=== PATIENT | female | born 2000 ===

== ENCOUNTER 2025-06-04 04:46 | Inpatient (IN) ==
[2025-06-04] MEDS ORDERED: OXYTOCIN 30 UNITS/NSS 30 UNITS/500 ML BAG IV PRN (05:43)
[2025-06-04] MEDS ORDERED: LIDOCAINE 1% LOCAL 20 ML VIAL INFIL PRN (05:43)
[2025-06-04 06:11] LABS: Hematocrit (blood only) 35.1 % (37.0-47.0); Hemoglobin 11.8 g/dl (12.0-16.0); Mean Corpuscular Hemoglobin 30.2 pg (25.0-34.0); Mean Corpuscular Volume 89.8 fL (80.0-100.0); Platelet Count 216 K/uL (130-400); RDW Standard Deviation 39.3 fL (36.4-46.3); Red Blood Count 3.91 M/uL (4.20-5.40); White Blood Count 12.19 K/ul (4.8-10.8)
[2025-06-04] MEDS: LACTATED RINGER'S 1,000 ML IV PRN (07:18)
--- NOTE | 2025-06-04 07:38 | Anesthesiology Consultation ---
Date of Service June 04, 2025 Assessment & Plan ASA ASA2 Proposed Anesthesia Anesthesia Type: General Risk / Benefits Reviewed With: PT / POA / Parent / Guardian, Accepts Plan and Informed Consent Obtained History Height/Weight Height: 5 ft 5.75 in Weight: 75.75 kg Allergies Allergy/AdvReac Type Severity Reaction Status Date / Time acyclovir Allergy Intermediate Itching Verified 06/01/25 13:36 chocolate AdvReac Gastrointestinal Verified 06/04/25 05:03 Upset milk AdvReac Gastrointestinal Verified 06/04/25 05:03 Upset Medications Home Medications Medication Instructions Recorded Confirmed Last Taken 21-iron fu-folic acid 1 tab PO DAILY 10/24/24 06/04/25 05/22/25 [ Complete] Active Medications Generic Name Dose Route Start Last Admin Trade Name Freq PRN Reason Stop Dose Admin Lactated Ringer's 1,000 mls @ 125 mls/hr 06/04/25 05:43 06/04/25 08:27 Lr IV 06/06/25 05:42 125 mls/hr .Q8H PRN Administration L&D Protocol Protocol Past Medical History Medical History History of chicken pox Hepatitis A age 9 Exercise / Class Metabolic Activity II 4-5 Yardwork/Stairs/Walk up hill Past Family History Family History Mother Ovarian cancer Hypertension Father Diabetes Denies family history of Breast cancer Colorectal cancer Past Surgical History Surgical History No history of previous surgery Past Anesthesia History No Hx of Anesthesia Complications and No Family Hx of Anesthesia Complications History of PONV No Hx of PONV and No Hx of Motion Sickness Social History Smoking Status: Never smoker Do You Dip or Chew Tobacco: No Hx Alcohol Use: No Hx Substance Use: No substance use type: does not use Review of Systems denies fever/cough/ colds/ chest pain/ SOB/ HA denies HA Physical Exam Vital Signs Last Vital Signs Temp 37.0 C 06/04/25 07:11 Pulse 94 H 06/04/25 08:35 Resp 22 06/04/25 07:11 BP 127/55 L 06/04/25 08:35 Pulse Ox 97 06/04/25 08:35 ENMT Mouth: no TMJ abnormality and no dentition abnormality Thyromental Distance: > or= 3.5 Finger Breadths Mallampati Class: II Neck neck extension not limited Respiratory normal respiratory effort; no respiratory distress Auscultation: lungs clear to auscultation bilaterally Cardiovascular Rate/Rhythm: regular rate and regular rhythm Neurologic moves all extremities Psychiatric Orientation: alert and oriented x 3 Testing Laboratory Results 06/04/25 05:53
[2025-06-04] MEDS ORDERED: NALOXONE HCL 1 MG in SODIUM CHLORIDE 0.9% 1,000 ML IV PRN (07:39)
[2025-06-04] MEDS ORDERED: ROPIVACAINE 0.5% PF 5 MG/ML 20 ML VIAL EPI PRN (07:39)
[2025-06-04] MEDS ORDERED: BUPIVACAINE 0.25% PF 30 ML VIAL EPI PRN (07:39)
[2025-06-04] MEDS ORDERED: diphenhydrAMINE 50 MG/ML VIAL IV PRN (07:39)
[2025-06-04] MEDS ORDERED: NALOXONE HCL 0.4 MG/1 ML VIAL/CARP IV PRN (07:39)
[2025-06-04] MEDS ORDERED: SODIUM CHLORIDE 0.9% PF INJ 10 ML VIAL EPI PRN (07:39)
[2025-06-04] MEDS ORDERED: LIDOCAINE 2% MPF LOCAL 5 ML VIAL EPI PRN (07:39)
[2025-06-04] MEDS ORDERED: NALBUPHINE HCL INJ 10 MG/ML AMP IV PRN (07:39)
--- NOTE | 2025-06-04 07:53 | History & Physical Report ---
Date of Service June 04, 2025 Assessment & Plan (1) Supervision of normal first : Plan: 24 yo G1 at 40 6/7 wga presents in labor VSS Fetus cat 1 Labor - plan offer arom after epidural GBS neg desires epidural Admission and Anticipated Discharge Date Admission Date: June 04, 2025 History of Present Illness Chief Complaint: labor Primary Care Provider: Tiffany Lobato MD 24 yo G1 at 40 6/7 wga presents w/ ctx increasing in frequency and intensity. +FM; denies LOF, VB. PNI: None Past medical records coder hx: G1 regular cycles denies hx stis 10/2024 neg cyto Allergies Allergy/AdvReac Type Severity Reaction Status Date / Time acyclovir Allergy Intermediate Itching Verified 06/01/25 13:36 chocolate AdvReac Gastrointestinal Verified 06/04/25 05:03 Upset milk AdvReac Gastrointestinal Verified 06/04/25 05:03 Upset Home Medications Medication Instructions Recorded Confirmed Type 21-iron fu-folic acid 1 tab PO DAILY 10/24/24 06/04/25 History [ Complete] Patient History Medical History History of chicken pox Hepatitis A age 9 Surgical History No history of previous surgery Family History Mother Ovarian cancer Hypertension Father Diabetes Denies family history of Breast cancer Colorectal cancer Social History Smoking Status: Never smoker Do You Dip or Chew Tobacco: No; Hx Alcohol Use: No Hx Substance Use: No Preferred Language: Hungarian Communication Ability: Effective Blood Bank Manager Required: No Beliefs That Will Affect Care: Cultural marital status: marital status details: Fatimahwanda Mónica (28) [phone] Current Living Situation: Spouse Current Living Situation Comment: lives with spouse, no pets current occupational status: unemployed Other Information That Helps Us Care for You: No Assistive Devices: Contacts and Glasses Physical Exam Genitourinary: OB Exam Monitor Tracing: + external FHT monitor used, + external uterine monitor used (q6-7) and + category I (130/mod/+accel/-decel) SVE 4-5/90/-2 by RN Results & Data Vital Signs (Past 12 Hours) Vital Signs Temp Pulse Resp BP Pulse Ox 06/04/25 07:45 77 93 06/04/25 07:44 75 94 06/04/25 07:39 76 97 06/04/25 07:11 98.6 F 22 06/04/25 07:04 98.6 F 73 22 128/75 06/04/25 05:04 98.1 F 18 06/04/25 05:01 75 137/73 Laboratory Results OB Labs: Blood Type A Positive 11/03/24 Antibody Screen NEGATIVE 11/03/24 Hgb 11.0 g/dl (12.0-16.0) L 04/10/25 Hct 32.9 % (37.0-47.0) L 04/10/25 MCV 86.9 fL (80.0-100.0) 11/03/24 Plt Count 218 K/uL (130-400) 11/03/24 Rubella IgG Antibody Immune (Immune) 11/03/24 Treponema pallidum Ab Negative (Negative) 04/10/25 Hep Bs Antigen Negative (Negative) 11/03/24 Hepatitis C Antibody Negative (Negative) 11/03/24 HIV 1&2 Ab/P24 Ag 4thGn Negative (Negative) 11/03/24 Glucose 1 Hr 50 gm 102 mg/dl (70-130) 04/10/25 OB Optional Labs: Chlamydia trachomatis RNA Not Detected (NotDetected) 11/03/24 Neisseria gonorrhoeae RNA Not Detected (NotDetected) 11/03/24 Diagnostic Findings Fundal plac Coding Level of Care Code None Diagnoses Supervision of normal first Z34.00
[2025-06-04] MEDS: fentANYL 2 MCG/ML BUPIVacaine 0.125%-NSS 100ML BAG ONE (08:22)
[2025-06-04] MEDS: BUPIVACAINE 0.25% PF 30 ML VIAL ONE (08:30)
[2025-06-04] MEDS: LIDOCAINE 2%/EPINEPHRINE 1:200,000 20 ML PF ONE (08:31)
[2025-06-04] MEDS: BUPIVACAINE 0.25% PF 30 ML VIAL EPI STA (08:31)
[2025-06-04] MEDS: SODIUM CHLORIDE 0.9% PF INJ 10 ML VIAL ONE (08:31)
[2025-06-04] MEDS: SODIUM CHLORIDE 0.9% PF INJ 10 ML VIAL EPI STA (08:32)
[2025-06-04] MEDS: LIDOCAINE 2%/EPINEPHRINE 1:200,000 20 ML PF EPI STA (08:32)
--- NOTE | 2025-06-04 09:14 | Labor Progress Brief Note ---
Date of Service June 04, 2025 Subjective comfortable w/ epidural Assessment & Plan (1) Supervision of normal first : Plan: 24 yo G1 at 40 6/7 wga presents in labor VSS Fetus cat 1 Labor - offered arom and pt agreeable, tolerated well. SVE similar to prior, discussed possible need for pitocin as well but will see GBS neg epidural in place Admission and Anticipated Discharge Date Admission Date: June 04, 2025 Physical Exam Genitourinary: OB Exam Abdomen: + vertex and + estimated weight (7-8) Manual OB Exam: + cervical dilation (4-5), + cervical effacement 70%, + station -2 and + amniotic fluid (arom clear) OB Exam Monitor Tracing: + external FHT monitor used, + external uterine monitor used (q8) and + category I (125/mod/+accel/-decel) Results & Data Vital Signs (Past 12 Hours) Vital Signs Temp Pulse Resp BP Pulse Ox 06/04/25 09:10 59 L 98 06/04/25 09:05 86 96 06/04/25 09:00 89 97 06/04/25 08:56 85 118/57 L 06/04/25 08:55 86 96 06/04/25 08:51 85 123/63 06/04/25 08:50 85 96 06/04/25 08:45 91 H 126/59 L 97 06/04/25 08:42 89 125/60 06/04/25 08:40 93 H 97 06/04/25 08:35 94 H 127/55 L 97 06/04/25 08:30 89 97 06/04/25 08:29 93 H 119/59 L 06/04/25 08:27 89 121/59 L 06/04/25 08:25 97 06/04/25 08:25 100 H 06/04/25 08:25 88 120/57 L 06/04/25 08:23 89 121/55 L 06/04/25 08:21 88 120/58 L 06/04/25 08:20 82 97 06/04/25 08:15 75 96 06/04/25 08:13 78 89 L 06/04/25 08:09 73 98 06/04/25 08:04 77 97 06/04/25 07:59 74 96 06/04/25 07:54 71 97 06/04/25 07:52 76 94 06/04/25 07:49 73 93 06/04/25 07:45 77 93 06/04/25 07:44 75 94 06/04/25 07:39 76 97 06/04/25 07:11 98.6 F 22 06/04/25 07:04 98.6 F 73 22 128/75 06/04/25 05:04 98.1 F 18 06/04/25 05:01 75 137/73 Coding Level of Care Code None Diagnoses Supervision of normal first Z34.00
[2025-06-04] MEDS: OXYTOCIN 30 UNITS/NSS 30 UNITS/500 ML BAG IV PRN ×2 (10:30→16:21)
[2025-06-04] MEDS: fentANYL 2 MCG/ML BUPIVacaine 0.125%-NSS 100ML BAG EPI PRN (14:23)
--- NOTE | 2025-06-04 15:22 | Delivery Summary ---
Vaginal Delivery Summary Date of Service June 04, 2025 Vaginal Delivery Summary and 2nd Degree LAC PREOPERATIVE DIAGNOSIS: 1. Single intrauterine at 40 6/7 wga 2. Labor POSTOPERATIVE DIAGNOSIS: 1. Single intrauterine at 40 6/7 wga 2. Labor 3. Delivered PROCEDURE: 1. Normal spontaneous vaginal delivery. SURGEON: Guillermina Aponte MD ANESTHESIA: Epidural. QUANTITATIVE BLOOD LOSS: 55 mL FLUIDS: Continuous LR. URINE OUTPUT: None. COMPLICATIONS: None. CONDITION: Stable. INDICATIONS: 24 yo G1 at 40 6/7 wga presented with contractions increasing in frequency and intensity and found to be 4-5cm. She received an epidural for pain control and underwent arom. Pitocin was started for augmentation and she progressed to complete and desired to push. FINDINGS: A viable male , weight 8lbs 13oz with Apgars of 8 and 9 at 1 and 5 minutes respectively. SPECIMEN: Cord blood OPERATIVE REPORT: The patient progressed to 10 cm, 100% effaced and +2 station, pushed over intact perineum with anesthesia to deliver a viable male infant, weight and Apgars as above. Head of delivered in MIHAELA position. Loose nuchal cord was rapidly delivered by patient before could be reduced. Body and shoulders were delivered without difficulty. was delivered to maternal abdomen and nursing staff. Delayed cord clamping was performed for 60 seconds. Cord was clamped and cut. Cord blood was obtained. Placenta delivered spontaneously intact with 3-vessel cord. IV oxytocin and fundal massage were given for excellent hemostasis. Vagina, cervix, perineum, and placenta were inspected. A second degree and bilateral labial lacerations were repaired using 3-0 vicryl. There was excellent hemostasis. Sponge and needle counts correct x2. No sponges were left behind. Mother and stable in immediate period. [facility] [place] Vaginal Delivery Charge Vaginal Delivery Codes: 55928 global code for the antepartum, delivery, and post- Delivery Type Details: and 2nd Degree LAC
[2025-06-04] MEDS ORDERED: HYDROCORTISONE ACETATE 25 MG SUPP PR PRN (16:14)
[2025-06-04] MEDS: IBUPROFEN 600 MG TAB PO PRN (16:45)
--- NOTE | 2025-06-04 17:51 | Anesthesia Procedure Note ---
Date of Service June 04, 2025 Anesthesia Post Epidural Note Vital Signs Vital Signs: Temp Pulse Resp BP Pulse Ox 36.8 C 98 H 20 115/61 96 06/04/25 11:57 06/04/25 17:29 06/04/25 16:14 06/04/25 17:29 06/04/25 15:05 Pain Intensity Abdomen: Pain Intensity: 0 Notes Mental Status: alert / awake / arousable and participated in evaluation Nausea / Vomiting: adequately controlled Pain: adequately controlled Airway Patency, RR, SpO2: stable & adequate BP & HR: stable & adequate Hydration State: stable & adequate Neuraxial Anesthesia: was administered and sensory block resolved Anesthetic Complications: no major complications apparent and Pt Satisfied with anesthetic care Epidural: Removed without complications and With tip intact
[2025-06-04] MEDS: BENZOCAINE 20% SPRY 85 APPLN/85 GM CAN EXT PRN (19:18)
[2025-06-04] MEDS: DOCUSATE SODIUM 100 MG CAP PO SCH (20:56)
[2025-06-04] MEDS: ACETAMINOPHEN 325 MG TAB PO PRN (20:56)
--- NOTE | 2025-06-05 07:20 | Obstetrical Progress Note ---
Date of Service June 05, 2025 Assessment & Plan (1) Encounter for care and examination after delivery: 24 yo PP1 s/p , doing well -Meeting all pp milestones -A+/rubella immune/ -f/u 6 weeks for appt. Desires dc today if ok w/ peds, ok for dc Subjective Ambulation: ambulating normally Voiding: no voiding problems Passing Gas:: Yes Diet Tolerance:: regular diet Lochia:: Small Feeding Type:: breast feeding Pain well managed with medication Review of Systems Denies fevers, chills, n/v, GODWIN, CP, SOB Physical Exam Constitutional WD/WN, vitals as above no acute distress Respiratory normal respiratory effort, lungs clear to auscultation Cardiovascular RRR, no murmur, no edema Gastrointestinal (Abdomen) Percussion/Palpation: abdomen soft; abdomen nontender fundus firm at umbilicus and NT Musculoskeletal BLE symmetric, nonerythematous, nontender Results & Data Vital Signs (Past 12 Hours) Vital Signs Temp Pulse Resp BP Pulse Ox O2 Del Method 06/05/25 03:12 98.1 F 91 H 18 121/72 98 Room Air 06/04/25 23:40 97.5 F L 80 18 112/67 Room Air 06/04/25 19:21 97.5 F L 72 18 120/69 97 Room Air
[2025-06-05] MEDS: PRENATAL VITAMIN 1 TAB PO SCH (07:58)
[2025-06-05] MEDS: FERROUS SULFATE 325 MG TAB PO SCH (08:20)
--- NOTE | 2025-06-06 08:18 | Obstetrical Progress Note ---
Date of Service <Mal Polk MD - Last Filed: 06/06/25 08:18> June 06, 2025 Assessment & Plan <Mal Polk MD - Last Filed: 06/06/25 08:18> (1) care and examination: 24 yo post- day 2 s/p [] Fells well today. Vital signs stable Continue post- care Encourage ambulation and Pain controlled with ibuprofen and tylenol Hgb stable Discharge home today, follow up with OB in 6 weeks. Discharge instructions discussed <Katerina Reece MD - Last Filed: 06/07/25 13:08> (1) care and examination: Plan Resident Physician Supervision Note: I interviewed and examined the patient. Discussed with Dr. Polk and agree with findings and plan as documented in the note. Any exceptions or clarifications are listed here: [ ] Documented By: Katerina Reece MD, FACOG Subjective <Mal Polk MD - Last Filed: 06/06/25 08:18> 24 yo post- day 2 s/p [] Ambulation: ambulating normally Voiding: no voiding problems Passing Gas:: Yes Diet Tolerance:: regular diet Lochia:: Small Feeding Type:: breast feeding Current Pain Level: 5/10 controlled with tylenol and ibuprofen Resting comfortably this AM in NAD. Denies GODWIN, CP, SOB, N/V/D, LE pain/swelling. Physical Exam <Mal Polk MD - Last Filed: 06/06/25 08:18> General: patient resting comfortably, NAD, non-toxic in appearance, AA&O x 4, answers questions appropriately. Skin: warm, dry, intact HEENT: NC/AT, anicteric sclera, conjunctiva without injection, moist mucus membranes. Heart: +S1/S2, regular, no m/r/g Lungs: equal air entry bilaterally, no rales/rhonchi/wheezes Abd: +BS, soft, NT/ND, uterine fundus firm below umbilicus Ext: warm, no clubbing/cyanosis or edema, Juanjo's neg. Neuro: nonfocal, patient AA&O x 4, speech intact, no facial droop, moving all extremities on command. Results & Data <Mal Polk MD - Last Filed: 06/06/25 08:18> Vital Signs (Past 12 Hours) Vital Signs Temp Pulse Resp BP Pulse Ox O2 Del Method 06/06/25 00:45 36.4 C L 73 16 110/73 99 Room Air
[2025-06-06 08:42] VITALS: RESP 18; O2SAT 97
[2025-06-06] MEDS: DIPHTHER/TETAN/PERTUS Vaccine (Tdap, Adol/Adult) 0.5mL IM ONE (12:48)
[2025-06-06 15:27] VITALS: BP 121/79; PULSE 70; TEMP 98.4
== END 2025-06-06 17:25 | disposition home or self-care (01) | DRG 807 ==
LOC: OPB 04:46 → 4S1 04:47 → 4E2 18:04